=== PATIENT | female | born 1990 | race Hispanic/Latino ===

== ENCOUNTER 2018-09-24 01:30 | Emergency (ER) | payer SELFPAY ==
[2018-09-24] MEDS ORDERED: Dexamethasone 4 MG TAB ONE (02:16)
== END 2018-09-24 02:22 | disposition home or self-care (01) ==
LOC: ERS 01:30
DX: J06.9 Acute upper respiratory infection, unspecified (principal)
CPT/HCPCS: 87081; 87430; 99283; J8540

== ENCOUNTER 2018-11-15 22:24 | Emergency (ER) | payer SELFPAY | END 2018-11-16 00:10 | disposition left against medical advice (07) | LOC: ERS 22:24 | DX: Z53.21 Procedure and treatment not carried out due to patient leaving prior to being seen by health care provider (principal) ==

== ENCOUNTER 2018-11-24 17:46 | Emergency (ER) | payer SELFPAY ==
[2018-11-24 19:46] LABS: #Basophils 0.1 thou/uL (0.0-0.2); #Eosinphils 0.2 thou/uL (0.0-0.7); #Lymphocytes 2.9 thou/uL (1.20-3.40); #Monocytes 0.5 thou/uL (0.11-0.59); #Neutrophils 5.1 thou/uL (1.40-6.50); %Basophils 0.7 % (0.0-1.0); %Eosinophils 2.4 % (0.0-10.0); %Neutrophils 57.9 % (42.0-75.0); Hemoglobin 12.7 g/dL (12.0-16.0); Mean Corpuscular HGB CONC 33.5 g/dL (32.0-36.0); Mean Corpuscular Hemoglobin 30.5 pg (27.0-31.0); Mean Corpuscular Volume 90.9 fL (78.0-98.0); Mean Platelet Volume 8.3 fL (7.4-10.4); Platelet Count 270 thou/uL (130-400); RBC Distribution Width 12.1 % (11.5-14.5); Red Blood Cell (RBC) Count 4.16 mill/uL (4.20-5.40); White Blood Cell (WBC) Count 8.8 thou/uL (4.8-10.8)
[2018-11-24 19:47] LABS: Bilirubin Negative (Negative); Blood, Urine Negative (Negative); Clarity CLOUDY (Clear); Glucose, Urine (Dipstick) Negative (Negative); Leukocyte Trace (Negative); Nitrite Negative (Negative); Protein, Urine (Dipstick) Negative (Neg-Trace); Specific Gravity, Urine 1.019 (1.002-1.036); Urobilinogen 0.2 mg/dL (0.2-1.0); pH, Urine 5.5 (5.0-9.0)
[2018-11-24 19:49] LABS: BHCG - Serum Negative (NEGATIVE); Pregs Control Background? CLEAR/WHITE (CLR/WHITE); Pregs Control Bar Appear? YES (CONTROL BAR)
[2018-11-24 19:53] LABS: Bacteria/HPF 2+ HPF (None Seen); Hyaline Casts/LPF 0-3 HYALINE CAST LPF (0-3 Hyaline); Pathc Cast-AUWi Flag 0.43 (0-2.49); RBC/HPF 0-3 HPF (0-3); WBC/HPF 0-3 HPF (0-3)
[2018-11-24 20:04] LABS: ALT (SGPT) 37 U/L (8-55); AST (SGOT) 24 U/L (5-34); Albumin 4.2 g/dL (3.5-5.0); Alkaline Phosphatase 76 U/L (40-150); Anion Gap 13 mmol/L (10-20); BUN (Urea Nitrogen) 14 mg/dL (7.0-18.7); Bilirubin, Total 0.2 mg/dL (0.2-1.2); Calc. Creatinine Clearance 0 mL/min (70-130); Calcium 9.3 mg/dL (7.8-10.44); Carbon Dioxide 23 mmol/L (22-29); Chloride 105 mmol/L (98-107); Estimated GFR-MDRD 56; Globulin 3.3 g/dL (2.4-3.5); Glucose 113 mg/dL (70-105); Lipase 38 U/L (8-78); Potassium 4.2 mmol/L (3.5-5.1); Protein, Total 7.5 g/dL (6.0-8.3); Sodium 137 mmol/L (136-145)
== END 2018-11-24 21:20 | disposition home or self-care (01) ==
LOC: ERS 17:46
DX: N39.0 Urinary tract infection, site not specified (principal)
CPT/HCPCS: 36415; 80053; 81003; 81015; 83690; 84703; 85025; 99284

== ENCOUNTER 2019-01-31 21:07 | Emergency (ER) | payer SELFPAY | END 2019-01-31 22:55 | disposition home or self-care (01) | LOC: ERS 21:07 | DX: H61.23 Impacted cerumen, bilateral (principal); H66.92 Otitis media, unspecified, left ear | CPT/HCPCS: 69210 ==

== ENCOUNTER 2019-05-26 13:17 | Emergency (ER) | payer SELFPAY ==
[2019-05-26] MEDS ORDERED: diphenhydrAMINE 50 MG/ML VIAL ONE (14:28)
[2019-05-26] MEDS ORDERED: Acetaminophen 500 MG TAB ONE (14:28)
[2019-05-26] MEDS ORDERED: Metoclopramide HCl 10 MG/2 ML VIAL ONE (14:28)
[2019-05-26 15:59] LABS: Bilirubin Negative (Negative); Blood, Urine Negative (Negative); Clarity Clear (Clear); Glucose, Urine (Dipstick) Normal (Negative); Leukocyte Negative Leu/uL (Negative); Nitrite Negative (Negative); Protein, Urine (Dipstick) Negative (Neg-Trace); Urobilinogen Normal mg/dL (Less than 2)
[2019-05-26 16:01] LABS: Pregnancy Test - Urine (BHCG) Negative (Negative); Pregu Control Background? CLEAR/WHITE (CLR/WHITE); Pregu Control Bar Appear? YES (CONTROL BAR); Specific Gravity 1.008 (1.002-1.036)
== END 2019-05-26 16:28 | disposition home or self-care (01) ==
LOC: ERS 13:17
DX: R51 Headache (principal)
CPT/HCPCS: 81003; 81025; 96361; 96365; 96375; J1200; J2765

== ENCOUNTER 2019-05-27 08:17 | Emergency (ER) | payer SELFPAY | END 2019-05-27 09:18 | disposition home or self-care (01) | LOC: ERS 08:17 | DX: R68.84 Jaw pain (principal) | CPT/HCPCS: 99281 ==

== ENCOUNTER 2019-09-06 18:30 | Emergency (ER) | payer SELFPAY | END 2019-09-06 21:00 | disposition home or self-care (01) | LOC: ERS 18:30 | DX: J11.1 Influenza due to unidentified influenza virus with other respiratory manifestations (principal) | CPT/HCPCS: 87804; 99283 ==

== ENCOUNTER 2023-10-09 06:51 | Emergency (ER) | payer SELFPAY ==
[2023-10-09] MEDS ORDERED: Ibuprofen 800 MG TAB ONE (07:25)
== END 2023-10-09 09:23 | disposition home or self-care (01) ==
LOC: ERS 06:51
DX: H72.92 Unspecified perforation of tympanic membrane, left ear (principal); H61.22 Impacted cerumen, left ear
CPT/HCPCS: 69210; 99282

== ENCOUNTER 2024-06-18 06:29 | Emergency (ER) | payer SELFPAY ==
[2024-06-18] MEDS ORDERED: Ibuprofen 800 MG TAB ONE (06:49)
[2024-06-18] MEDS ORDERED: Docusate Sodium 100 MG/10 ML UDCUP FS SCH (07:00)
== END 2024-06-18 09:00 | disposition home or self-care (01) ==
LOC: ERS 06:29
DX: H61.21 Impacted cerumen, right ear (principal)
CPT/HCPCS: 69209; 99282

== ENCOUNTER 2024-10-10 15:33 | Emergency (ER) | payer SELFPAY ==
[2024-10-10] MEDS ORDERED: Acetaminophen 500 MG TAB ONE (16:29)
[2024-10-10] MEDS ORDERED: Dexamethasone 10 MG/ML VIAL ONE (16:29)
== END 2024-10-10 17:41 | disposition home or self-care (01) ==
LOC: ERS 15:33
DX: J11.1 Influenza due to unidentified influenza virus with other respiratory manifestations (principal)
CPT/HCPCS: 71046; 87081; 87428; 87430; J1100

== ENCOUNTER 2024-10-12 05:06 | Emergency (ER) | payer SELFPAY ==
[2024-10-12] MEDS ORDERED: Dexamethasone 10 MG/ML VIAL ONE (05:23)
[2024-10-12] MEDS ORDERED: Ketorolac Tromethamine 30 MG (1 mL) VIAL ONE ×2 (05:23→05:27)
[2024-10-12] MEDS ORDERED: Oseltamivir 75 MG CAP ONE (05:28)
== END 2024-10-12 05:40 | disposition home or self-care (01) ==
LOC: ERS 05:06
DX: J11.1 Influenza due to unidentified influenza virus with other respiratory manifestations (principal)
CPT/HCPCS: 93005; 96372; 99283; J1100; J1885

== ENCOUNTER 2024-10-23 07:55 | Emergency (ER) | payer SELFPAY ==
[2024-10-23] MEDS ORDERED: Ketorolac Tromethamine 30 MG (1 mL) VIAL ONE (08:14)
== END 2024-10-23 08:26 | disposition home or self-care (01) ==
LOC: ERS 07:55
DX: H60.92 Unspecified otitis externa, left ear (principal)
CPT/HCPCS: 96372; 99282; J1885

== ENCOUNTER 2024-11-04 08:04 | Emergency (ER) | payer SELFPAY ==
[2024-11-04] MEDS ORDERED: Docusate Sodium 100 MG/10 ML UDCUP FS SCH (09:00)
== END 2024-11-04 10:03 | disposition home or self-care (01) ==
LOC: ERS 08:04
DX: H61.23 Impacted cerumen, bilateral (principal)
CPT/HCPCS: 69209